=== PATIENT | male | born 1970 | race Asian ===

== ENCOUNTER 2021-08-09 18:25 | Inpatient (IN) | payer BC ==
[2021-08-09 20:17] VITALS: BMI 24.9
[2021-08-10] MEDS ORDERED: MAG HYDROX/AL HYDROX/SIMETH 30 ML UNIT-DOSE CUP PO PRN (00:47)
[2021-08-10] MEDS ORDERED: BISMUTH SUBSALICYLATE 524 MG/30 ML PO PRN (00:47)
[2021-08-10] MEDS ORDERED: IBUPROFEN 400 MG TABLET (FP) PO PRN (00:47)
[2021-08-10] MEDS ORDERED: NICOTINE POLACRILEX 2 MG GUM BUC PRN (00:47)
[2021-08-10] MEDS ORDERED: MENTHOL/PHENOL 1 EACH UD MM PRN (00:47)
[2021-08-10] MEDS ORDERED: guaiFENesin 200 MG/10 ML 10 ML UNIT-DOSE CUPS PO PRN (00:47)
[2021-08-10] MEDS ORDERED: ONDANSETRON *ODT* 4 MG TABLET SL PRN (00:47)
[2021-08-10] MEDS ORDERED: P-EPHED 60MG/TRIPROLIDI 2.5MG TABLET PO PRN (00:47)
[2021-08-10] MEDS ORDERED: MAGNESIUM HYDROX 2400MG/30ML ORAL SUSPENSION 30 ML CUP PO PRN (00:47)
[2021-08-10] MEDS ORDERED: MAGNESIUM CITRATE 300 ML BOTTLE PO PRN (00:47)
[2021-08-10] MEDS ORDERED: DICYCLOMINE HCL 10 MG CAPSULE PO PRN (00:47)
[2021-08-10] MEDS ORDERED: ACETAMINOPHEN 325 MG TABLET (FP) PO PRN ×2 (00:47)
[2021-08-10] MEDS ORDERED: chlordiazePOXIDE HCL 25 MG CAPSULE PO PRN (00:47)
[2021-08-10] MEDS ORDERED: LOPERAMIDE HCL 2 MG CAPSULE PO PRN (00:47)
[2021-08-10] MEDS ORDERED: chlordiazePOXIDE HCL 25 MG CAPSULE PO ONE (00:58)
[2021-08-10] MEDS ORDERED: chlordiazePOXIDE HCL 25 MG CAPSULE ONE (01:13)
[2021-08-10] MEDS: chlordiazePOXIDE HCL 25 MG CAPSULE PO SCH ×4 (05:16→22:15)
[2021-08-10] MEDS: NICOTINE 21 MG/24 HOURS TOPICAL PATCH TD SCH (10:24)
[2021-08-10] MEDS: PRENATAL VITAMINS W/ FOLIC ACID TABLET (FP) PO SCH (10:24)
[2021-08-10 11:42] LABS: HEMATOCRIT 45.2 % (35.4-49); HEMOGLOBIN 15.9 GM/dL (11.7-16.9); MCH 37.1 pg (25.7-33.7); MEAN CELL VOLUME 105.9 fl (80-96); PLATELET COUNT 139 10^3/uL (134-434); RBC 4.27 M/mm3 (4.00-5.60); RDW 12.6 % (11.9-15.9); WHITE BLOOD COUNT 5.9 K/mm3 (4.0-10.0)
[2021-08-10 11:47] LABS: CALCIUM 9.9 mg/dL (8.5-10.1)
[2021-08-10 11:48] LABS: ALBUMIN 3.9 g/dl (3.4-5.0)
[2021-08-10 11:52] LABS: BILIRUBIN,TOTAL 2.6 mg/dL (0.2-1)
[2021-08-10 12:34] LABS: HIV INTERPRETATION NEGATIVE (NEGATIVE)
[2021-08-10] MEDS: MELATONIN 5 MG TABLETS PO SCH (22:15)
[2021-08-10] MEDS: THIAMINE HCL 100 MG TABLET (FP) PO SCH (22:15)
[2021-08-11] MEDS: chlordiazePOXIDE HCL 25 MG CAPSULE PO SCH ×4 (06:08→22:21)
[2021-08-11] MEDS: NICOTINE 21 MG/24 HOURS TOPICAL PATCH TD SCH (11:36)
[2021-08-11] MEDS: PRENATAL VITAMINS W/ FOLIC ACID TABLET (FP) PO SCH (11:36)
[2021-08-11] MEDS: MELATONIN 5 MG TABLETS PO SCH (22:20)
[2021-08-11] MEDS: THIAMINE HCL 100 MG TABLET (FP) PO SCH (22:20)
[2021-08-11] MEDS: METHOCARBAMOL 500 MG TABLET PO PRN (22:21)
[2021-08-12] MEDS ORDERED: chlordiazePOXIDE HCL 10 MG CAPSULE PO PRN
[2021-08-12] MEDS: chlordiazePOXIDE HCL 10 MG CAPSULE PO SCH ×4 (04:57→22:03)
[2021-08-12] MEDS: METHOCARBAMOL 500 MG TABLET PO PRN (10:17)
[2021-08-12] MEDS: PRENATAL VITAMINS W/ FOLIC ACID TABLET (FP) PO SCH (10:17)
[2021-08-12] MEDS: NICOTINE 21 MG/24 HOURS TOPICAL PATCH TD SCH (11:07)
[2021-08-12 16:52] LABS: BILIRUBIN,DIRECT 0.4 mg/dL (0.0-0.2)
[2021-08-12 16:55] LABS: BILIRUBIN,TOTAL 1.3 mg/dL (0.2-1)
[2021-08-12] MEDS: THIAMINE HCL 100 MG TABLET (FP) PO SCH (22:02)
[2021-08-12] MEDS: MELATONIN 5 MG TABLETS PO SCH (22:03)
[2021-08-13] MEDS ORDERED: chlordiazePOXIDE HCL 10 MG CAPSULE PO SCH (05:00)
[2021-08-13 09:18] VITALS: BP 128/81; PULSE 87; TEMP 97.8
[2021-08-13] MEDS ORDERED: METOPROLOL TARTRATE 25 MG TABLET (FP) PO SCH (10:00)
[2021-08-13 10:09] LABS: SARS-CoV-2 NAA Not Detected (Not Detected)
[2021-08-14] MEDS ORDERED: chlordiazePOXIDE HCL 10 MG CAPSULE PO ONE (05:00)
== END 2021-08-13 09:50 | disposition home or self-care (01) | DRG 775 ==
LOC: YASAS 18:25 → Y6N 08-10 02:19
PROVIDERS: ADMIT Allergy & Immunology; ATTEND Allergy & Immunology
PROC: HZ2ZZZZ Detoxification Services for Substance Abuse Treatment (ICD-10-PCS; principal; 2021-08-10)
DX: F10.230 Alcohol dependence with withdrawal, uncomplicated (principal); F17.210 Nicotine dependence, cigarettes, uncomplicated; I10 Essential (primary) hypertension
CPT/HCPCS: 36415; 80053; 82247; 82248; 85027; 86780; 87389; 93005; 93010; C9803; U0003; U0005